=== PATIENT | male | born 1990 | race Caucasian/White ===

== ENCOUNTER 2020-02-28 19:05 | Emergency (ER) | payer OTHER ==
[~2020-02-28] VITALS: Ht 160 cm; Wt 56.7 kg
[~2020-02-28 19:05] MED LIST: ACULAR 3 ML3 M1 OP; ANXIETY MED PO; BACTRIM DS 8001 TA1 PO; DICLOFENAC POTA50 MG PO; HYDROCODONE BIT1 T11 PO; KEFLEX500 MG PO; MOTRIN800 MG PO; NAPROSYN500 MG PO; NKHM; NORFLEX100 MG PO; SLEEPING MED PO; TOBREX OPHTH S2.5 ML OPH; VICODIN 5/500 505 MG PO; VICODIN ES 7501 TAB PO; VOLTAREN50 M1 PO
[2020-02-28] MEDS ORDERED: CLEOCIN HCL150 MG PO (20:04)
[2020-02-28] MEDS ORDERED: Motrin,Rufen800 MG PO (20:06)
== END 2020-02-28 20:06 | disposition home or self-care (01) ==
LOC: ED 19:05
DX: K04.01 Reversible pulpitis (principal); K02.9 Dental caries, unspecified; K08.89 Other specified disorders of teeth and supporting structures; F41.9 Anxiety disorder, unspecified; F17.200 Nicotine dependence, unspecified, uncomplicated; Z79.899 Other long term (current) drug therapy

== ENCOUNTER → 2021-05-18 | Outpatient (CLI) | payer OTHER ==
[~2021-05-18] MED LIST changes: +CLEOCIN HCL150 MG PO; +Motrin,Rufen800 MG PO
== END | disposition home or self-care (01) ==
LOC: COVID19 17:31
PROVIDERS: ATTEND Internal Medicine
DX: Z11.52 Encounter for screening for COVID-19 (principal)

== ENCOUNTER 2022-12-15 19:52 | Emergency (ER) | payer OTHER ==
[2022-12-16] MEDS ORDERED: AMOXICILLIN500 M2 PO (01:28)
== END 2022-12-16 01:36 | disposition home or self-care (01) ==
LOC: ED 19:52
DX: J02.9 Acute pharyngitis, unspecified (principal)

== ENCOUNTER 2025-07-25 15:53 | Emergency (ER) | payer OTHER ==
[~2025-07-25] VITALS: Ht 162.5 cm; Wt 63.5 kg
[~2025-07-25 15:53] MED LIST changes: +AMOXICILLIN500 M2 PO
[2025-07-25] MEDS ORDERED: ATIVAN1 MG PO (16:36)
[2025-07-25] MEDS ORDERED: LORazepam 1 MG TAB PO ONE (16:40)
== END 2025-07-25 17:09 | disposition home or self-care (01) ==
LOC: ED 15:53
DX: F32.A Depression, unspecified (principal); F41.9 Anxiety disorder, unspecified; F43.10 Post-traumatic stress disorder, unspecified; F19.90 Other psychoactive substance use, unspecified, uncomplicated; F17.210 Nicotine dependence, cigarettes, uncomplicated

== ENCOUNTER → 2025-08-11 | Outpatient (CLI) | payer OTHER ==
[~2025-08-11] MED LIST changes: +ATIVAN1 MG PO
[2025-08-11 18:44] LABS: BASO # 0.1 10*3/uL (0.0-0.1); BASO % 0.5 % (0.0-1.0); EOS # 0.0 10*3/uL (0.0-0.4); EOS % 0.2 % (1.0-4.0); MEAN CELL VOLUME 89.1 fl (80.0-94.0); MEAN CORPUSCULAR HGB 28.6 pg (27.0-31.0); MEAN PLATELET VOLUME 10.9 fl (9.6-12.3); MONO # 1.0 10*3/uL (0.1-1.0); MONO % 8.8 % (3.0-9.0); NEUT # 7.3 10*3/uL (2.3-7.9); NEUT % 67.2 % (47.0-73.0); NUCLEATED RED BLOOD CELL 0.0 % (0.0-0.0); NUCLEATED RED BLOOD CELL 0.0 10*3/uL (0.0-0.0); PLATELET COUNT AUTOMATED 231 10*3/uL (130-400); RED CELL DISTRI WIDTH 13.3 % (0-14.5)
[2025-08-11 19:32] LABS: BUN 8 mg/dl (9-23); LDL CHOLESTEROL 135 mg/dL (9-159); SGPT/ALT 7 U/L (5-49)
[2025-08-11 20:00] LABS: FREE T4 1.29 ng/dl (0.89-1.76)
== END ==
LOC: RHCWE 18:38
PROVIDERS: ATTEND Nurse Practitioner Family
DX: Z13.220 Encounter for screening for lipoid disorders (principal); Z13.29 Encounter for screening for other suspected endocrine disorder; Z76.89 Persons encountering health services in other specified circumstances; Z13.0 Encounter for screening for diseases of the blood and blood-forming organs and certain disorders involving the immune mechanism; Z13.228 Encounter for screening for other metabolic disorders